=== PATIENT | female | born 1965 | race Caucasian/White ===

== ENCOUNTER 2023-06-29 12:12 | Emergency (ER) | payer OTHER, SELFPAY ==
[2023-06-29] VITALS (9 sets, daily range): BP systolic 110–135; BP diastolic 63–89; PULSE 85–97
[2023-06-29 12:43] LABS: % Basophils 0.3 % (0-2); % Eosinophils 1.6 % (0-6); % Immature Granulocytes 0.3 % (0-0.5); % Lymphocytes 24.6 % (20.5-51.1); % Monocytes 6.6 % (1.7-9.3); % Neutrophils 66.6 % (42.2-75.2); Absolute Eosinophils 0.1 10^3/uL (0-0.7); Absolute Lymphocytes 1.9 10^3/uL (1.2-3.4); Absolute Monocytes 0.5 10^3/uL (0.1-0.6); Absolute Neutrophils 5.1 10^3/uL (1.4-6.5); Hematocrit 42.5 % (37.0-47.0); Hemoglobin 14.6 g/dL (12.0-16.0); Mean Corp Hgb Conc. 34.4 g/dL (33.0-37.0); Mean Corpuscular Hgb 29.3 pg (27.0-31.0); Mean Corpuscular Volume 85.2 fL (81.0-99.0); Mean Platelet Volume 11.1 fL (7.4-10.4); Nucleated Red Blood Cells % 0 %; Platelet Count 147 10^3/uL (130-400); Red Blood Cell Count 4.99 10^6/uL (4.20-5.40); Red Cell Dist. Width 12.4 % (11.5-14.5); White Blood Cell Count 7.6 10^3/uL (4.8-10.8)
[2023-06-29 12:54] LABS: ALT (SGPT) 107 U/L (0-35); AST (SGOT) 66 U/L (14-36); Albumin 4.7 g/dl (3.5-5.0); Alkaline Phosphatase 76 U/L (38-126); Blood Urea Nitrogen 17 mg/dl (7-17); Calcium 9.9 mg/dl (8.4-10.2); Carbon Dioxide 26 mmol/L (22-30); Chloride 103 mmol/L (98-107); Glucose 143 mg/dl (70-99); Potassium 4.1 mmol/L (3.5-5.1); Sodium 136 mmol/L (135-145); Total Bilirubin 0.6 mg/dl (0.2-1.3); Total Protein 7.1 g/dl (6.3-8.2); eGFR > 60.00
[2023-06-29 13:05] LABS: Troponin I < 0.012 ng/ml
--- NOTE | 2023-06-29 14:50 | ED.GENMED ---
History of Present Illness
General
Chief Complaint: Cardiac Symptoms
Source: patient and records
Exam Limitations: none
Time Seen by Provider: 06/29/23 13:24
Nursing documentation reviewed up to this point in time: agreed with
Travel History
Have you had any contact with someone who has COVID-19?: No
Do you have any symptoms of coronavirus? Fever > 100 degrees, chills, cough, shortness of breath, sore throat, loss of taste or smell, muscle aches, or headache?: No
History of Present Illness
History of Present Illness:
Patient is a 57-year-old female presents to the emergency department complaining that she does not feel well. Patient states she is feeling woozy. It does not seem to follow any pattern nor is it constant. Patient states it started when her
simvastatin was stopped 10 days ago because her liver enzymes were elevated. At the same time her metformin was increased from 500 mg to 1000 mg because her hemoglobin A1c was elevated. Patient states that when she took her metformin that a couple
hours later she was lightheaded and felt worse so the metformin was decreased to 750 mg. Patient then started noticing heart palpitations where her heart was beating irregular and occasionally fast. Patient also noted night sweats. Patient then
developed a headache behind her right eye. That has resolved. Patient denies any visual or speech difficulties. Patient denies any focal weakness or ataxia. Patient denies any GI or symptoms. The palpitations seem to be random and not
associated with exertion. Patient states it feels like when she drinks caffeine which she does not. Patient denies fever chills, weight change, nasal congestion, sore throat or cough. Patient denies any chest pain.
Past History
Past History
ED Past Medical History: Hypercholesterolemia, NIDDM and Other (Anxiety, irritable bowel syndrome)
Social History
Tobacco: Non-smoker
Review of Systems
Review of Systems
All Other Systems: ROS reviewed and negative except as documented in HPI and ROS
Constitutional: Reports fatigue and night sweats; Denies fever, weight gain, weight loss or chills
EENT: Reports no symptoms
Respiratory: Reports no symptoms
Cardiac: Reports palpitations; Denies chest pain, diaphoresis or syncope
ABD/GI: Reports no symptoms
: Reports no symptoms
Musculoskeletal: Reports no symptoms
Skin: Reports no symptoms
Neurological: Reports no symptoms
Hematologic/Lymphatic: Reports no symptoms
Psychiatric: Reports no symptoms
Phy Exam
Physical Exam
Physical Exam:
Physical Exam
General: No apparent distress, alert and appropriate, well nourished, well hydrated
HENT: Normocephalic, supple with no lymphadenopathy, no thyromegaly
Eyes: Clear sclera, conjuctiva without injection
Heart: Regular rhythm and rate. No S3, S4. No murmur. No NVD, bruit
Lungs: No respiratory distress, no stridor, lung sounds clear and equal bilaterally, chest wall symmetrical and nontender
Abdomen: Soft, nontender, no organomegaly, no CVA tenderness, BS good
Neuro: Alert and oriented x 3, CN II - XII intact, no motor focality, no cerebellar dysfunction
Skin: no rash
Psychiatric: well kept. interactive and cooperative
Extremities: No edema, cyanosis, tenderness, Good and equal peripheral pulses.
Scores
Heart Failure Risk
Heart Failure Risk Score: Not Applicable
Heart Score for Chest Pain Patients
STEMI patient?: Not applicable
Withdrawal Assessment of Alcohol
Withdrawal Assessment Completed?: Not applicable
Course
Orders/Labs/Results
Orders:
Orders
06/29/23 12:22
ECG [Electrocardiogram (*1)] Urgent
Reason for Study: Palpitations
06/29/23 12:23
EKG- Treatment ONCE
06/29/23 12:35
Complete Blood Count/With Diff Urgent
Comprehensive Metabolic Panel Urgent
Free T4 Urgent
TSH Reflex To Free T4 Urgent
Comment: ADD ON
Troponin I Urgent
06/29/23 13:43
Add On- LAB Urgent
Tests Added?: tsh reflex t4
Orthostatic VS- Treatment ONCE
06/29/23 16:13
Urinalysis Reflex To Culture Urgent
Date Specimen was Collected: 06/29/23
Time Specimen was Collected: 16:03
Urine Microscopic Reflex Cult Urgent
Urine Culture Urgent
RAUDEL Source: U
Specimen Description:
Date Specimen was Collected: 06/29/23
Time Specimen was Collected: 16:03
Abnormal Lab Results
06/29/23 06/29/23
12:35 16:13
MPV 11.1 H fL
(7.4-10.4)
Creatinine 0.5 L mg/dL
(0.6-1.0)
Glucose 143 H mg/dl
(70-99)
AST 66 H U/L
(14-36)
ALT 107 H U/L
(0-35)
TSH (Reflex) 0.06 L uIU/ml
(0.47-4.68)
Leukocyte Esterase Rfl 1+ A
(Negative)
Urine WBC (Reflex) 40-50 A /HPF
(0-5)
06/29/23 12:35
06/29/23 12:35
Vital Signs
Initial and Last Documented VS:
Initial Vital Signs
Temp Pulse Resp BP Pulse Ox
98.9 F 95 18 135/89 99
06/29/23 12:19 06/29/23 12:19 06/29/23 12:19 06/29/23 12:19 06/29/23 12:19
Last Documented Vital Signs
Temp Pulse Resp BP Pulse Ox
98.9 F 79 17 120/72 98
06/29/23 12:19 06/29/23 17:00 06/29/23 17:00 06/29/23 17:00 06/29/23 17:00
*Radiology
Radiology exam reviewed: other (na)
*Pulse Oximetry
Patient hypoxic: no
*EKG
Interpreted by ED Provider?: Yes
EKG Intrepretation Date: 06/29/23
EKG Intrepretation Time: 14:55
Interpretation: normal
Comparison EKG: no changes
Heart Rate: 83
Rate: normal
Rhythm: sinus
[place]: normal axis
Interval: normal interval
QRS Pattern: normal QRS
Ischemia: no ischemia
*[place]pper Interpretation
Rate: normal
Interpretation: normal
Heart Rate: 83
Rhythm: sinus
*Critical Care Note
Total Time (30-74mins, 75-104mins- exclusive of procedures): Not Applicable
Update Note
Update Note:
Discussed with the patient about possibly putting her on a beta-kary she choose not to. Patient may need to just equilibrate to the new medication levels. Patient does need to follow-up with her family doctor for possible echocardiogram and
Holter monitor. Discussed this with the patient and her . Patient will be discharged.
ED Attending Note
-
Portions of this chart may have been created with voice recognition software.� Occasional wrong word or��sound alike� substitutions may have occurred due to the inherent limitations of voice recognition software.
Discharge Plan
Departure
Patient Disposition: Home (Routine Discharge)
Date of Disposition: 06/29/23
Time of Disposition: 17:22
Patient with high blood pressure during this ER visit?: No
Condition: Good
Covid-19: Not Applicable
Discharge Problem:
Palpitations
Instructions: Palpitations (DC)
Prescriptions:
No Action
cetirizine 10 MG tablet
10 mg PO DAILY
famciclovir 125 MG tablet
125 mg PO BID PRN (Reason: as needed)
fluoxetine 20 MG capsule
20 mg PO DAILY
multivitamin with folic acid [Tab-A-Erinn] 1 TABLET tablet
1 tab PO DAILY
Lactobacillus acidophilus [Probiotic] 1 EACH capsule
1 ea PO DAILY
cholecalciferol (vitamin D3) 125 MCG tablet,disintegrating
5,000 unit PO DAILY
biotin 5,000 MCG tablet, sublingual
5,000 mcg PO DAILY
Berberine
500 mg PO DAILY
Calcium
400 mg PO DAILY
Referrals:
Lorrie Briones DO [Family Provider] - Follow up in 5-7 days
Activity Restrictions/Additional Instructions:
Continue present medications and therapy. Return if increasing palpitations, chest pain, fainting, etc. You may need a Holter monitor and echocardiogram as an outpatient. See your physician about this.
Interventions
Interventions:
*Risk Screen - Suicide Last Done: 06/29/23 13:58
*General Assessment Last Done: 06/29/23 13:58
*Neglect/Abuse Screening Last Done: 06/29/23 13:58
ED- Fall Risk Assessment Last Done: 06/29/23 13:58
*ED COVID-19 Vaccine History Last Done: 06/29/23 12:19
ED- Pulmonary Assessment Last Done: 06/29/23 13:58
ED- Cardiac Assessment Last Done: 06/29/23 13:58
[2023-06-29 15:19] LABS: TSH Reflex To Free T4 0.06 uIU/ml (0.47-4.68)
[2023-06-29 16:00] LABS: Free T4 1.03 ng/dl (0.78-2.19)
[2023-06-29 16:21] LABS: Urine Albumin Negative (Neg - Trace); Urine Bilirubin Negative (Negative); Urine Character Clear (Clear); Urine Color Yellow; Urine Glucose Negative (Negative); Urine Ketone Negative (Negative); Urine Leukocyte 1+ (Negative); Urine Nitrite Negative (Negative); Urine Occult Blood Negative (Negative); Urine Specific Gravity 1.025 (<1.030); Urine Urobilinogen 1+ (Neg - 1+)
[2023-06-29 16:31] LABS: Urine Red Blood Cell None Seen /HPF (0-2); Urine White Cell 40-50 /HPF (0-5)
== END 2023-06-29 17:46 | disposition home or self-care (01) ==
LOC: EMR 12:12
PROVIDERS: Emergency Medicine; EMERGENCY PHYSICIAN Emergency Medicine; FAMILY PHYSICIAN Internal Medicine
DX: R00.2 Palpitations (principal)
CPT/HCPCS: 99284; 80053; 81003; 81015; 84439; 84443; 84484; 85025; 87077; 87086; 93005

== ENCOUNTER → 2023-09-28 08:30 | Outpatient (REF) | payer OTHER, SELFPAY | LOC: WDC 08:30 | PROVIDERS: ATTENDING PHYSICIAN Obstetrics & Gynecology; FAMILY PHYSICIAN Internal Medicine | DX: Z12.31 Encounter for screening mammogram for malignant neoplasm of breast (principal) | CPT/HCPCS: 77063; 77067 ==

== ENCOUNTER → 2024-06-18 09:32 | Outpatient (REF) | payer OTHER, SELFPAY ==
--- NOTE | 2024-06-19 14:30 | PN.DIAED04 ---
Education Record
- Education Record
Class Attended: Other (pre-registration for DSME classes)
DSME Class Series Code: [id number]
Instructor: Nurse Practitioner (SANDRA Guo)
Class Length (mins): 30
Pre-Program Knowledge: Demonstrates competency
Pre-Test Score (%): 81
Goals
- Goal 1
Being Active: Exercise 30 minutes-5 times per week
Goals To Be Evaluated: Exercise 30 mins-5x/week
- Goal 2
Healthy Eating: Patient will be able to plan a meal, Make better food choices, Reduce portion sizes
Goals To Be Evaluated: Be able to plan a meal. Make better food choices. Reduce portion sizes
- Goal 3
Monitoring: Follow monitoring schedule
Goals To Be Evaluated: Follow monitoring times
--- NOTE | 2024-06-19 14:34 | PN.DIAED02 ---
Referral
DSME Class Series Code: [id number]
Referred For: Diabetes Self-Management Training, Self-Blood Glucose Monitoring, Long-Term Complication Instruction, Accute Complication Instruction, Disease Management
PHI Release Authorization Form Signed: No
Demographic
(1) Type 2 diabetes mellitus without complications
Status: Acute Onset Date: ~12/23/23
Qualifiers:
Code(s): E11.9 - Type 2 diabetes mellitus without complications
Patient's primary language-: Brazilian
Education: College degree
Occupation: Professional
Hours Worked/Week: 20-40
- Social
Primary Support Person: Self
Primary Care Takers: Self
Living Arrangements: Self, Self & spouse
- Learning Methods
Preferred Method: Hands-on demonstration
Barriers to Learning: None
Glycemic Control
- Blood Glucose Monitoring Assessment
Date: 12/22/23 (FBG 184)
Blood glucose monitoring at home: No
Monitor Brands: Other (CGM_ DEXCOM G6)
Frequency: >4x per day
Time: fasting, before breakfast, before lunch, before dinner
- Ketone Monitoring Assessment
Patient monitoring ketone: No
- Hyperglycemia Assessment
Experiences Hyperglycemia: No
- Hypoglycemia Assessment
Patient carries glucose source: No
Patient experiences hypoglycemia: No
- Hemoglobin A1c
Date: 12/23/23
A1C Percentage (%): 9.1
Medical History of Diabetes
Family Diabetes History: Mother, Father, Grandmother, Grandfather, Multiple family members
Previous Diabetes Education: No
Previous visit with Dietitian: No
Complications/Comorbidity/Specialist: Hyperlipidemia, Other / symptoms (anxiety )
Other:
Anxiety
Measures
- Anthropometrics
Height: 5 ft 2 in
Actual Weight: 175 lb 15.991 oz
- Blood Pressure / Pulse
Blood pressure: 145/92
Pulse: 93
- Diabetes Management
Medical Management for Diabetes: Complete physical exam (09/15/2023), Dental exam (01/06/2024), Dilated eye exam (01/26/2024)
Self-Care
- Tobacco Usage
Do you now, or have you ever smoked?: Quit more than 1 year ago
Smoking Cessation Referral and/or Information provided: No
- Alcohol & Drugs Usage
Drinks Alcohol: No
Uses Recreational Drugs: No
- Meals & Dining
Meals & Dining: Patient skips meals: No, Food Intolerance / Allergy: No, Cultural / Synagogue Dietary Needs: No
Primary Food Graffiti Cleaner: Self
Primary Cattle Producers: Self
Dining Out Frequency: 1-3x per week
- Physical Activity
Physical Limitation: No
Patient participates in physical Activity: No
- Patient-Self Assessment
Diabetes Knowledge: Good
Feelings About Diabetes: Sadness / Depression
General Health: Good
Importance of Health: Extremely
Stress Level: Medium
Diabetes Interferes With:: Sexual relations
Barriers to Diabetes Management: Nothing
Depression Survey Score: 1
- Diabetes Identification
Carries Diabetes Identification: No
Diabetes Identification Information Provided: No
Care Plan
- Education Needs
Patient Education Needs: Diabetes disease process, Chronic complications, Acute complications, Monitoring, Physical activity, Psychosocial Adjustment, Nutritional management, Goal setting & problem solving
Recommended Diabetes Training Program based on assessment: Outpatient Diabetes Education Program
- Plan of Care
Plan of Care:
Met with Yvonne today for registration and initiation of Diabetes Self management. Pt was recommended by her PCP due to recent Dx of T2DM with an A1C of 9.1% that was noted on recent blood work. Patient states that she was started on Trulicity and
was given a script for a CGM- Dexcom G7 that she dose not know how to use.
Yvonne was assisted with initiation and insertion of her CGM, the device had 22 minutes left of warm up time.
Reviewed proper insertion technique and instructed her to alternate sites with each new device. A monitoring schedule was set for her to monitor blood sugars 2x/day- Fasting and 2 hrs after dinner.
Pt was counseled with emphasis on the importance of weight loss, Physical activity, need to adhere to a healthy life style including healthy eating and taking her medications. Goals for physical activity were established; pt will start exercising
for 30 minutes/5 days a week.
--- NOTE | 2024-06-19 14:46 | PN.DIAED14 ---
This is to notify you that your patient with diabetes, JAYDE SMITH ( 1965), has enrolled in our diabetes self-management classes that are being held at [facility].
These classes will include an introduction to diabetes, diet, medication, exercise and prevention of complications. At the end of our class series, you will receive a report of your patient's participation and progress for your records.
Please contact me at the Diabetes Center, , if there is any particular information regarding your patient that might be helpful to me.
Sincerely,
Jr FLORES-KALA, [facility]
--- NOTE | 2024-06-19 14:47 | PN.DIAED04 ---
Addendum entered and electronically signed by Susan Arrieta 06/20/24 11:59:
Outpatient Diabetes Education Program:
Class 1 (120 minutes)
Describe the diabetes disease process and treatment options
Diabetes management
Develop personal strategies to promote health and behavior change
Integrate psychosocial adjustment for daily living
Monitor blood glucose and other parameters. Interpret and use the results for self-management decision making
Prevent, detect, and treat acute complications
Original Note:
Education Record
- Education Record
Class Attended: Class 1
DSME Class Series Code: [id number]
Instructor: Nurse Practitioner (SANDRA Guo)
Class Length (mins): 120
Post-Class 1 Test Score (%): 94
== END ==
LOC: DES 09:32
PROVIDERS: ATTENDING PHYSICIAN Internal Medicine
DX: E11.65 Type 2 diabetes mellitus with hyperglycemia (principal)
CPT/HCPCS: 99078

== ENCOUNTER → 2024-06-25 13:46 | Outpatient (REF) | payer OTHER, SELFPAY | LOC: DES 13:46 | PROVIDERS: ATTENDING PHYSICIAN Internal Medicine | DX: E11.65 Type 2 diabetes mellitus with hyperglycemia (principal) | CPT/HCPCS: 99078 ==

== ENCOUNTER → 2024-07-02 11:16 | Outpatient (REF) | payer OTHER, SELFPAY | LOC: DES 11:16 | PROVIDERS: ATTENDING PHYSICIAN Internal Medicine | DX: E11.65 Type 2 diabetes mellitus with hyperglycemia (principal) | CPT/HCPCS: 99078 ==

== ENCOUNTER → 2024-07-09 08:36 | Outpatient (REF) | payer OTHER, SELFPAY ==
--- NOTE | 2024-07-10 10:35 | PN.DIAED04 ---
Education Record
- Education Record
Class Attended: Class 4
DSME Class Series Code: [id number]
Instructor: Nurse Practitioner (SANDRA Guo)
Class Curriculum:
Outpatient Diabetes Education Program:
Class 4 (120 minutes)
Develop personal strategies to promote health and behavior change
Incorporate physical activity into lifestyle
Utilize medications safety for maximum therapeutic effectiveness
Understand different medication/insulin mechanism of action
Preparing for travel
Class Length (mins): 120
Post-Class 4 Test Score (%): 100
== END ==
LOC: DES 08:36
PROVIDERS: ATTENDING PHYSICIAN Internal Medicine
DX: E11.65 Type 2 diabetes mellitus with hyperglycemia (principal)
CPT/HCPCS: 99078

== ENCOUNTER → 2024-07-16 13:02 | Outpatient (REF) | payer OTHER, SELFPAY ==
--- NOTE | 2024-07-18 12:07 | PN.DIAED16 ---
This is to notify you that your patient with diabetes, JAYED SMITH ( 1965), has attended the entire series of Diabetes Self-Management Education Classes.
Class 1 (120 minutes): Diabetes Overview - monitoring, stress/psychosocial adjustment, support, goal setting
Class 2 (120 minutes): Meal Planning - serving sizes, menu plans
Class 3 (120 minutes): Introduction to Carbohydrate Counting, Analyzing Food Labels
Class 4 (120 minutes): Medication, Exercise and Activity
Class 5 (120 minutes): Sick Day Management, Strategies to Reduce Complications, Problem Solving, Resources
The following behavioral goals were identified:
Exercise 30 mins-5x/week
Be able to plan a meal
Make better food choices
Reduce portion sizes
Follow monitoring times
A follow-up call will be made within three to six months to evaluate attainment of these goals and to check post-program Hemoglobin A1c and overall progress. All class participants are encouraged to contact me if I can be any further assistance in
learning how to manage their diabetes.
Sincerely,
Jr FLORES-KALA, SUAD
== END ==
LOC: DES 13:02
PROVIDERS: ATTENDING PHYSICIAN Internal Medicine
DX: E11.65 Type 2 diabetes mellitus with hyperglycemia (principal)
CPT/HCPCS: 99078

== ENCOUNTER → 2024-12-14 07:34 | Outpatient (REF) | payer OTHER, SELFPAY | LOC: WDC 07:34 | PROVIDERS: ATTENDING PHYSICIAN Obstetrics & Gynecology; FAMILY PHYSICIAN Internal Medicine | DX: Z12.31 Encounter for screening mammogram for malignant neoplasm of breast (principal) | CPT/HCPCS: 77063; 77067 ==

== ENCOUNTER → 2024-12-24 09:06 | Outpatient (REF) | payer OTHER, SELFPAY | LOC: WDC 09:06 | PROVIDERS: ATTENDING PHYSICIAN Obstetrics & Gynecology; FAMILY PHYSICIAN Internal Medicine | DX: R92.8 Other abnormal and inconclusive findings on diagnostic imaging of breast (principal) | CPT/HCPCS: 76642 ==

== ENCOUNTER → 2024-12-27 07:43 | Outpatient (REF) | payer OTHER, SELFPAY ==
--- NOTE | 2024-12-27 11:48 | OID.BR.INTR ---
[facility] Breast Navigator - Initial
- -
Date of Contact: 12/27/24
Met with patient. Patient given written information on navigator service available at [facility]. Will follow up as needed per protocol.
== END ==
LOC: WDC 07:43
PROVIDERS: ATTENDING PHYSICIAN Obstetrics & Gynecology; FAMILY PHYSICIAN Internal Medicine
DX: N63.14 Unspecified lump in the right breast, lower inner quadrant (principal)
CPT/HCPCS: 19083; 88305; A4648